=== PATIENT | male | born 1990 | race Caucasian/White ===

== ENCOUNTER 2017-09-14 09:05 | Emergency (ER) | payer OTHER ==
[~2017-09-14] VITALS: Ht 180.3 cm; Wt 88.6 kg
[~2017-09-14 09:05] MED LIST: PERCOCET 325 MG1 TA2 PO; SYNTHROID0.2 MG/TAB PO; ZOFRAN ODT4 MG PO; ZOFRAN ODT8 MG PO
[2017-09-14 09:08] VITALS: BP 133/84; TEMP 98.1
[2017-09-14 09:27] LABS: COLLECTION METHOD CLEAN CATCH
[2017-09-14 09:33] LABS: PH 6 (5-8); SQUAMOUS EPITHELIAL None Seen /hpf; URINE APPEARANCE Clear; URINE BACTERIA None Seen /hpf; URINE BILIRUBIN Negative (NEGATIVE); URINE BLOOD 2+ (NEGATIVE); URINE COLOR Straw; URINE GLUCOSE Negative (NEGATIVE); URINE KETONE Negative (NEGATIVE); URINE LEUKOCYTE ESTERASE Negative (NEGATIVE); URINE NITRATE Negative (NEGATIVE); URINE PROTEIN(semi-quant) Negative (NEGATIVE); URINE UROBILINOGEN Negative (NEGATIVE)
[2017-09-14] MEDS ORDERED: MOTRIN 800800 MG/TAB PO (09:38)
[2017-09-14 10:35] VITALS: PULSE 60
== END 2017-09-14 10:40 | disposition home or self-care (01) ==
LOC: COL.ER 09:05
PROVIDERS: Nurse Practitioner
DX: N20.0 Calculus of kidney (principal); E06.3 Autoimmune thyroiditis; E03.9 Hypothyroidism, unspecified; Z87.442 Personal history of urinary calculi